=== PATIENT | female | born 1995 | race American Indian/Alaskan Native ===

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

== ENCOUNTER 2017-01-15 16:40 | Outpatient (CLI) | payer MEDICAID ==
[2017-01-15] MEDS ORDERED: LACTATED RINGERS 500 ML IV ONE (17:12)
[2017-01-15 17:50] LABS: Basophils % (Auto) 0.2 % (0.0-1.8); Eosinophils % (Auto) 0.7 % (0.0-4.3); Hematocrit 30.6 % (30.3-42.9); Hemoglobin 10.3 gm/dl (10.1-14.3); Mean Corpuscular HGB Conc 34 % (30-34); Mean Corpuscular Hemoglobin 27 pg (28-32); Mean Corpuscular Volume 81 fl (79-97); Platelet Count 144 K/mm3 (140-440); Red Blood Count 3.79 M/mm3 (3.65-5.03); Red Cell Distribution Width 13.9 % (13.2-15.2); White Blood Count 10.4 K/mm3 (4.5-11.0)
[2017-01-15 18:12] LABS: Bacteria,Urine 1+ /HPF (Negative); Bilirubin,Urine NEG (Negative); Blood,Urine NEG (Negative); Ketones,Urine NEG (Negative); Leukocyte Esterase,Urine LG (Negative); Mucus,Urine FEW /HPF; Nitrite,Urine NEG (Negative); Protein,Urine <15 mg/dL mg/dL (Negative)
[2017-01-15 18:47] LABS: Urine Drugs of Abuse Note Disclamer
--- NOTE | 2017-01-16 09:26 | Ultrasound Report ---
OB LIMITED INDICATION: Pain, bleeding. No care. Evaluate cervical length. COMPARISON: 12/30/2016 TECHNIQUE: Transabdominal grayscale ultrasound with Doppler interrogation. Gestation: Rojo Position: Breech Heart Rate: 142 BPM Cervical length: 3.1 cm (Normal > 3 cm)
[2017-01-16 11:28] VITALS: BP 120/61
== END 2017-01-15 21:30 | disposition home or self-care (01) ==
LOC: TRG 16:40
PROVIDERS: ATTEND Obstetrics & Gynecology
DX: O46.92 Antepartum hemorrhage, unspecified, second trimester (principal); O32.1XX0 Maternal care for breech presentation, not applicable or unspecified; Z3A.26 26 weeks gestation of pregnancy
CPT/HCPCS: 36415; 59025; 76815; 80307; 81001; 85025; J7120

== ENCOUNTER 2017-03-13 17:10 | Outpatient (CLI) | payer MEDICAID, OTHER ==
[2017-03-13] MEDS ORDERED: LACTATED RINGERS 1,000 ML IV ONE (18:40)
[2017-03-13] MEDS ORDERED: BRETHINE ONE (18:52)
[2017-03-13] MEDS ORDERED: BRETHINE SUB-Q ONE (19:00)
[2017-03-13] MEDS ORDERED: LACTATED RINGERS 1,000 ML IV SCH (19:00)
[2017-03-13 21:40] VITALS: BP 124/59
[2017-03-13] MEDS ORDERED: TYLENOL PO ONE (21:49)
--- NOTE | 2017-03-13 23:18 | Ultrasound Report ---
FINAL REPORT PROCEDURE: US OB LIMITED TECHNIQUE: Real-time limited sonographic examination was performed for evaluation of amniotic fluid volume for each fetus with image documentation (1 or more fetuses). CPT 98894 HISTORY: c/o vaginal leaking; SHANI COMPARISON: No prior studies are available for comparison. FINDINGS: IUP: Single living intrauterine . Position: Cephalic. Placental position: Anterior, without previa . Amniotic fluid volume: Amniotic fluid index is 18. Heart rate and rhythm: BPM, Regular . anatomic survey: Normal . heart rate is 143 beats per minute IMPRESSION: Amniotic fluid index is 18
== END 2017-03-13 22:10 | disposition home or self-care (01) ==
LOC: TRG 17:10
PROVIDERS: ATTEND Obstetrics & Gynecology
DX: O42.92 Full-term premature rupture of membranes, unspecified as to length of time between rupture and onset of labor (principal); O47.03 False labor before 37 completed weeks of gestation, third trimester; Z3A.34 34 weeks gestation of pregnancy
CPT/HCPCS: 59025; 76815; 96360; 96372; J3105; J7120

== ENCOUNTER 2017-04-08 01:04 | Inpatient (IN) | payer MEDICAID, OTHER ==
[2017-04-08] MEDS ORDERED: NITRATEST PAPER MC ONE (01:38)
[2017-04-08] MEDS ORDERED: LACTATED RINGERS 1,000 ML ONE ×2 (01:46→03:40)
[2017-04-08] MEDS ORDERED: LACTATED RINGERS 1,000 ML IV ONE (01:50)
[2017-04-08] MEDS ORDERED: STADOL ONE (03:38)
[2017-04-08] MEDS ORDERED: STADOL IV PRN (04:16)
[2017-04-08] MEDS ORDERED: BENADRYL ONE ×2 (04:41→10:18)
[2017-04-08] MEDS ORDERED: BENADRYL IV ONE (04:45)
[2017-04-08 04:54] LABS: Mean Corpuscular HGB Conc 32 % (30-34); Mean Corpuscular Hemoglobin 24 pg (28-32); Mean Corpuscular Volume 73 fl (79-97); Platelet Count 116 K/mm3 (140-440); Red Blood Count 4.26 M/mm3 (3.65-5.03); Red Cell Distribution Width 15.3 % (13.2-15.2)
[2017-04-08] MEDS ORDERED: PITOCin/NS 20 UNIT/1000ML DRIP 20 UNITS/1,000 ML BAG IV SCH ×2 (05:00→09:00)
[2017-04-08] MEDS ORDERED: PEPCID IV ONE (05:00)
[2017-04-08] MEDS ORDERED: LACTATED RINGERS 1,000 ML IV SCH (05:00)
[2017-04-08] MEDS ORDERED: REGLAN IV ONE (05:00)
[2017-04-08] MEDS ORDERED: BICITRA PO ONE (05:00)
[2017-04-08] MEDS ORDERED: ANCEF/STERILE WATER 2 GM/20 ML 2 GM/20 ML SYRINGE IV NR (05:00)
--- NOTE | 2017-04-08 06:13 | History and Physical Report ---
History of Present Illness Date of examination: 04/08/17 Date of admission: 04/08/17 05:39 Chief complaint: leakage of fluid History of present illness: 21y/o @ 38+3 weeks presents with irregular contractions and leakage of fluid. Patient initiated care @ 26 weeks ega. There has been evidence of THC use during the . She has a prior for PPROM and CPD. She denies vaginal bleeding. +GBS Past History Past Medical History: other (condyloma) Past Surgical History: section Social history: single - Obstetrical History Expected Date of Delivery: 04/19/17 Actual Gestation: 38 Week(s) 3 Day(s) : 3 Para: 1 Hx # Term Pregnancies: 0 Number of Pregnancies: 1 Spontaneous Abortions: 0 Induced : 1 Number of Living Children: 1 Medications and Allergies Allergies Allergy/AdvReac Type Severity Reaction Status Date / Time No Known Allergies Allergy Verified 03/13/17 17:38 Home Medications Medication Instructions Recorded Confirmed Last Taken Type Ferrous Sulfate [Feosol 325 MG tab] 325 mg PO BID #60 tablet 05/22/15 03/11/17 09:00 Rx 1 Active Meds: Active Medications Butorphanol Tartrate (Stadol) 2 mg IV Q2H PRN PRN Reason: Labor Pain Cefazolin Sodium (Ancef/Sterile Water 2 Gm/20 Ml) 2 gm in 20 mls @ 80 mls/hr IV PREOP NR PRN Reason: Protocol Stop: 04/08/17 23:45 Lactated Ringer's (Lactated Ringers) 1,000 mls @ 2,250 mls/hr IV PREOP LENI Stop: 04/09/17 05:27 Oxytocin/Sodium Chloride (Pitocin/Ns 20 Unit/1000ml Drip) 20 units in 1,000 mls @ 0 mls/hr IV TITR LENI PRN Reason: As Directed Review of Systems All systems: negative Genitourinary: leakage of fluid, contractions, no vaginal bleeding - Physical Exam Breasts: Positive: deferred Cardiovascular: Regular rate Lungs: Positive: Clear to auscultation Abdomen: Positive: normal appearance Results Result Diagrams: 04/08/17 01:50 Abnormal lab results 04/08/17 Range/Units 01:50 Hgb 10.0 L (10.1-14.3) gm/dl MCV 73 L (79-97) fl MCH 24 L (28-32) pg RDW 15.3 H (13.2-15.2) % Plt Count 116 L (140-440) K/mm3 All other labs normal. Assessment and Plan - Patient Problems (1) Spontaneous rupture of amniotic membranes Current Visit: Yes Status: Acute Plan to address problem: proceed with a repeat delivery (2) Previous delivery affecting Current Visit: Yes Status: Acute
--- NOTE | 2017-04-08 06:15 | Procedure Note ---
OB Delivery Note - Delivery Date of Delivery: 04/08/17 Surgeon: KARI MENDOZA Estimated blood loss: other (600ml) - Section Preop diagnosis: repeat Postop diagnosis: same section procedure: section, repeat low transverse Disposition: PACU Complications: none - Infant A at 1 minute: 8 at 5 minutes: 9 Infant Gender: Male (weight 6lbs 9oz)
[2017-04-08] MEDS ORDERED: WATER FOR IRRIG STERILE IR ONE (07:20)
[2017-04-08] MEDS ORDERED: NACL 0.9% IR ONE (07:20)
[2017-04-08] MEDS ORDERED: MORPHINE ONE (07:21)
[2017-04-08] MEDS ORDERED: NEO SYNEPHRINE/NS Syringe(OR USE) IV ONE (07:55)
[2017-04-08] MEDS ORDERED: ZOFRAN ONE (07:55)
[2017-04-08] MEDS ORDERED: TYLENOL PO PRN (08:31)
[2017-04-08] MEDS ORDERED: NARCAN 0.4 MG/1 ML IV PRN ×2 (08:31→08:44)
[2017-04-08] MEDS ORDERED: TUCKS PAD TP PRN (08:31)
[2017-04-08] MEDS ORDERED: LANSINOH TP PRN (08:31)
[2017-04-08] MEDS ORDERED: TORADOL IV PRN (08:31)
--- NOTE | 2017-04-08 08:31 | Operative Report ---
Operative Report Operative Report: Date of surgery: 04/08/2017 Preoperative diagnosis: at 38+3 weeks; Spontaneous rupture of membranes; Prior delivery Postoperative diagnosis: Same as above Procedure: Repeat low transverse delivery Surgeon: Laura Morgan M.D.[] Anesthesia: Regional Estimated blood loss: 600 mL IV fluids: 1500 mL Urine output: 100 mL Findings: Liveborn male with Apgars of 8 and 9 weight 6 lbs. 9 oz. Indications: 21year-old at 38 and 3 weeks who presents with spontaneous rupture membranes and a history of a prior delivery. Procedure: The patient was taken to the operating room and given regional anesthesia without complication. She was prepped and draped in a normal sterile fashion. A Pfannenstiel skin incision was made down to layer the fascia which was nicked in the midline extended laterally with the Bovie cautery. The superior aspect of the rectus fascia was grasped with [place] clamps x2 and the rectus muscles off sharply. This was done in inferior fashion as well. The rectus muscle midline and peritoneum entered bluntly. An Papi retractor was then inserted. A bladder blade was placed. The vesicouterine peritoneum was then entered sharply with Metzenbaum scissors. A bladder flap was created digitally. A low transverse uterine incision was then made and extended digitally. There was clear fluid upon entry into the uterine cavity. The head was delivered through the incision with fundal pressure. The cord was clamped and cut x2 and infant was passed off to pediatrics. The placenta was then manually extracted. The uterus was then exteriorized and cleared of clots and debris. The uterine incision was then closed in a running locked fashion with 0 Vicryl additional imbricating stitch was applied for 2 layer closure. The posterior cul-de-sac was then copiously irrigated. The uterus was replaced back into the abdomen and pelvis were the gutters were then irrigated. The Papi retractor was then removed. The peritoneum was then reapproximated with 3-0 Vicryl incorporating the rectus muscle. The fascia was then closed with 0 Vicryl in a running fashion. The skin was then reapproximated with 3-0 Monocryl on a Fransico needle subcuticular fashion. Steri-Strips to place across the incision and a Crede procedures performed at the end of the surgery. A pressure dressing was applied to the incision. The surgery productive of a liveborn male with Apgars of 8 and 9 weight 6 lbs. 9 oz. The patient was taken to the recovery room in stable condition. All sponge laps and needle counts correct x2.
--- NOTE | 2017-04-08 08:42 | Anesthesia Consultation ---
Anesthesia Consult and Med Hx Date of service: 04/08/17 - Airway Anesthetic Teeth Evaluation: Good ROM Head & Neck: Adequate Mental/Hyoid Distance: Adequate Mallampati Class: Class II Intubation Access Assessment: Probably Good - Pulmonary Exam CTA: Yes - Cardiac Exam Cardiac Exam: RRR - Pre-Operative Health Status ASA Pre-Surgery Classification: ASA2, Emergency Proposed Anesthetic Plan: Spinal - Pulmonary Hx Asthma: No COPD: No Hx Pneumonia: No - Cardiovascular System Hx Hypertension: No Hx Coronary Artery Disease: No Hx Heart Attack/AMI: No Hx Angina: No Hx Cardia Arrhythmia: No Hx Heart Murmur: No - Central Nervous System Hx Seizures: No Hx Psychiatric Problems: Yes (anxiety/panick attacks) - Endocrine Hx Renal Disease: No Hx End Stage Renal Disease: No Hx Hypothyroidism: No Hx Hyperthyroidism: No - Hematic Hx Anemia: No Hx Sickle Cell Disease: No - Other Systems Hx Alcohol Use: No
--- NOTE | 2017-04-08 08:43 | Anesthesia Day of Surgery ---
Anesthesia Day of Surgery - Day of Surgery Patient Examined: Yes Patient H&P Reviewed: Yes Patient is NPO: Yes (FSP)
[2017-04-08] MEDS ORDERED: MORPHINE IV PRN (08:44)
[2017-04-08] MEDS ORDERED: ZOFRAN IV PRN (08:44)
--- NOTE | 2017-04-08 08:44 | Post Anesthesia Evaluation ---
- Post Anesthesia Evaluation Patient Participated: Yes Airway Patent: Yes Stable Respiratory Function: Yes Temp > 96.8F: Yes Pain Manageable: Yes Adequeate Hydration: Yes Anesthesia Complications: No
[2017-04-08] MEDS ORDERED: D5LR 1,000 ML IV SCH (09:00)
[2017-04-08] MEDS ORDERED: SODIUM CHLORIDE FLUSH SYRINGE 10 ML IV NR (09:00)
[2017-04-08 20:35] LABS: Hematocrit 29.3 % (30.3-42.9)
[2017-04-08] MEDS ORDERED: MILK OF MAGNESIA PO PRN (22:00)
[2017-04-08] MEDS ORDERED: BENADRYL PO PRN (22:54)
[2017-04-09] MEDS: PERCOCET 5/325 PO PRN ×3 (08:56→22:51)
[2017-04-09] MEDS: MOTRIN PO PRN ×3 (08:56→22:52)
--- NOTE | 2017-04-09 12:45 | Progress Note ---
Assessment and Plan - Patient Problems (1) Spontaneous rupture of amniotic membranes Current Visit: Yes Status: Acute Plan to address problem: Routine postoperative care (2) Previous delivery affecting Current Visit: Yes Status: Acute Subjective - Subjective Date of service: 04/09/17 Interval history: The patient reports incisional pain. She is tolerating a regular diet. She has been able to void since removal of her Youssef. Patient reports: appetite normal, voiding normally : doing well Objective - Vital Signs Latest vital signs: Vital Signs Temp Pulse Resp BP Pulse Ox 04/09/17 07:54 99.6 F 79 20 117/62 95 04/09/17 04:05 99.4 F 74 18 124/75 04/09/17 00:00 98.0 F 75 18 114/57 04/08/17 21:55 99.0 F 04/08/17 20:10 100.4 F H 72 18 100/54 Intake and Output 04/08/17 04/09/17 04/09/17 22:59 06:59 14:59 Intake Total 320 360 120 Output Total 1400 500 Balance -1080 -140 120 Intake: Oral 320 360 120 Output: Urine 1400 500 Indwelling Catheter 600 500 Uretheral (Youssef) 800 Other: Total, Intake Amount 120 360 120 Total, Output Amount 600 500 # Voids Void 1 - Exam Abdomen: Present: normal appearance, soft Uterus: Present: normal, firm Incision: Present: normal, dry - Labs Labs: Abnormal lab results 04/08/17 Range/Units 19:55 Hgb 9.0 L (10.1-14.3) gm/dl Hct 29.3 L (30.3-42.9) %
[2017-04-10] MEDS: PERCOCET 5/325 PO PRN ×3 (05:33→21:07)
[2017-04-10] MEDS: MOTRIN PO PRN ×3 (05:33→21:07)
--- NOTE | 2017-04-10 08:21 | Progress Note ---
Assessment and Plan A/P POD#2 s/p repeat c/sec s/o cough and sob exam normal but will get cxr encourage ambulation and inspiratory spirometry pain tolerable with pain meds continous watch afebrile Subjective - Subjective Date of service: 04/10/17 Principal diagnosis: s/p repeat c/sec Patient reports: appetite normal, voiding normally, pain well controlled, flatus , ambulating normally [place]: doing well Objective - Vital Signs Latest vital signs: Vital Signs Temp Pulse Resp BP Pulse Ox 04/10/17 00:19 97.7 F 60 20 104/51 04/09/17 16:10 97.8 F 60 20 105/40 99 04/09/17 12:46 97.3 F L 62 16 118/54 97 Intake and Output 04/09/17 04/10/17 04/10/17 23:59 07:59 15:59 Intake Total 360 180 Balance 360 180 Intake: Oral 120 Intake, Free Water 240 180 Other: Total, Intake Amount 120 # Voids Void 1 1 - Exam Breasts: Present: normal Cardiovascular: Present: Regular rate, Normal S1 Lungs: Present: Clear to auscultation, Normal air movement Abdomen: Present: normal appearance, soft, normal bowel sounds. Absent: distention, tenderness, guarding Vulva: both: normal Uterus: Present: normal, firm, fundal height below umbilicus. Absent: bogginess , tenderness Extremities: Present: normal Deep Tendon Reflex Grade: Normal +2 Incision: Present: normal, dry, intact
--- NOTE | 2017-04-10 14:20 | XRay Report ---
ROUTINE CHEST, TWO VIEWS: HISTORY: Cough and shortness of breath. The trachea, heart, mediastinal contour, lung hickman and bony thorax are unremarkable. IMPRESSION: Unremarkable chest x-ray.
[2017-04-11] MEDS ORDERED: DEEP SEA NS PRN (05:40)
[2017-04-11] MEDS ORDERED: CLARITIN-D 24HR PO SCH (06:00)
[2017-04-11] MEDS: PERCOCET 5/325 PO PRN ×2 (06:29→15:40)
[2017-04-11] MEDS: MOTRIN PO PRN ×2 (06:30→15:40)
--- NOTE | 2017-04-11 08:23 | Discharge Summary ---
Providers - Providers Date of Admission: 04/08/17 05:39 Date of discharge: 04/11/17 Attending physician: KARI MENDOZA Primary care physician: KARI MENDOZA Hospitalization Reason for admission: active labor Delivery: Procedure: section, repeat low transverse Episiotomy: none Laceration: none Incision: normal, dry, intact Other procedures: none complications: none [place] baby: male Condition at discharge: Good Disposition: DC-01 TO HOME OR SELFCARE Plan - Discharge Medications Prescriptions: Docusate Sodium [Colace] 100 mg PO BID PRN #60 capsule PRN Reason: Constipation Ferrous Sulfate [Feosol] 325 mg PO BID #60 tablet Ibuprofen [Motrin] 800 mg PO Q8HR PRN #60 tablet PRN Reason: Pain Oxycodone HCl/Acetaminophen [Percocet 7.5/325 mg] 1 each PO Q6HR PRN #45 tablet PRN Reason: Pain - Provider Discharge Summary Activity: routine, no sex for 6 weeks, no strenuous exercise Diet: routine Instructions: routine Additional instructions: [] Smoking cessation referral if applicable(refer to patient education folder for contact #) [] Refer to [facility] Booklet Call your doctor immediately for: * Fever > 100.5 * Heavy vaginal bleeding ( >1 pad per hour) * Severe persistent headache * Shortness of breath * Reddened, hot, painful area to leg or breast * Drainage or odor from incision. * Keep incision clean and dry at all times and follow doctor's instructions regarding bathing/showering - Follow up plan Follow up: KARI MENDOZA MD [Primary Care Provider] - 7 Days
--- NOTE | 2017-04-11 08:23 | Progress Note ---
Assessment and Plan A/P POD#3 s/p repeat c/sec resolving cough and no sob cxr neg respiratory eval -patient voices improvement exam normal no wheezes appreciated encourage ambulation and inspiratory spirometry pain tolerable with pain meds d/c home in stable condition VSS f/u in 1 weeks Subjective - Subjective Date of service: 04/11/17 Principal diagnosis: s/p repeat c/sec Patient reports: appetite normal, voiding normally, pain well controlled, flatus , ambulating normally [place]: doing well Objective - Vital Signs Latest vital signs: Vital Signs Temp Pulse Resp BP Pulse Ox 04/11/17 00:00 98.6 F 62 16 114/64 04/10/17 21:15 98 04/10/17 16:00 98 F 98 H 18 99/43 Intake and Output 04/10/17 04/11/17 04/11/17 23:59 07:59 15:59 Intake Total 480 600 Balance 480 600 Intake: Oral 480 Intake, Free Water 600 Other: Total, Intake Amount 480 # Voids Void 2 # Bowel Movements 0 - Exam Breasts: Present: normal Cardiovascular: Present: Regular rate, Normal S1 Lungs: Present: Clear to auscultation, Normal air movement Abdomen: Present: normal appearance, soft, normal bowel sounds. Absent: distention, tenderness, guarding Vulva: both: normal Uterus: Present: normal, firm, fundal height below umbilicus (-2cm). Absent: bogginess, tenderness Extremities: Present: normal Deep Tendon Reflex Grade: Normal +2 Incision: Present: normal, dry, intact
[2017-04-11 13:02] VITALS: BP 117/60
== END 2017-04-11 16:10 | disposition home or self-care (01) | DRG 766 ==
LOC: TRG 01:04 → APU 05:39 → TRG 05:39 → OB 19:58
PROVIDERS: ADMIT Obstetrics & Gynecology; ATTEND Obstetrics & Gynecology
PROC: 10D00Z1 Extraction of Products of Conception, Low, Open Approach (ICD-10-PCS; principal; 2017-04-08)
DX: O34.211 Maternal care for low transverse scar from previous cesarean delivery (principal); O99.344 Other mental disorders complicating childbirth; F41.0 Panic disorder [episodic paroxysmal anxiety]; Z3A.38 38 weeks gestation of pregnancy; Z37.0 Single live birth
CPT/HCPCS: 36415; 71046; 85014; 85018; 85027; 86592; 86850; 86900; 86901; 99211; G0463; J0595; J0690; J1200; J1885; J2270; J2370; J2405; J2590; J2765; J7120

== ENCOUNTER 2017-08-07 20:23 | Emergency (ER) | payer MEDICAID | END 2017-08-07 20:45 | disposition left against medical advice (07) | LOC: ED 20:23 | DX: J02.9 Acute pharyngitis, unspecified (principal); M79.1 Myalgia; R11.10 Vomiting, unspecified; Z53.21 Procedure and treatment not carried out due to patient leaving prior to being seen by health care provider ==

== ENCOUNTER 2019-11-21 14:37 | Outpatient (CLI) | payer MEDICAID ==
[2019-11-21] MEDS ORDERED: LACTATED RINGERS 1,000 ML ONE (16:40)
[2019-11-21] MEDS ORDERED: TERBUTALINE 1 MG/1 ML INJ ONE (16:41)
[2019-11-21] MEDS ORDERED: LACTATED RINGERS 1,000 ML IV ONE (16:43)
[2019-11-21] MEDS: TERBUTALINE 1 MG/1 ML INJ SUB-Q SCH ×2 (16:46→17:35)
[2019-11-21] MEDS ORDERED: BETAMET ACET/BETAMET NA PH 6 MG/ML INJ 5 ML MDV IM SCH (22:00)
[2019-11-21] MEDS ORDERED: diphenhydrAMINE 25 MG CAP PO PRN (22:11)
[2019-11-21] MEDS ORDERED: DOCUSATE SODIUM 100 MG CAP PO PRN (22:11)
[2019-11-21] MEDS ORDERED: ACETAMINOPHEN 325 MG TAB PO PRN (22:11)
[2019-11-21] MEDS ORDERED: ONDANSETRON 4 MG/2 ML INJ IV PRN (22:11)
[2019-11-21] MEDS ORDERED: SIMETHICONE 80 MG CHEW TAB PO PRN (22:11)
[2019-11-21] MEDS: LACTATED RINGERS 1,000 ML IV SCH (23:11)
--- NOTE | 2019-11-21 23:45 | Ultrasound Report ---
ULTRASOUND OBSTETRIC LIMITED ULTRASOUND BIOPHYSICAL PROFILE INDICATION / CLINICAL INFORMATION: contractions. Clinical Gestational Age (GA): 34 weeks 1 day COMPARISON: None available. FINDINGS: BREATHING MOVEMENT = 2 GROSS BODY MOVEMENT = 2 TONE = 2 QUALITATIVE AMNIOTIC FLUID VOLUME = 2 TOTAL BIOPHYSICAL SCORE = 8/8 HEART RATE (beats per minute): 131 AMNIOTIC FLUID INDEX (cm) = 13.0 (normal = 7-24 cm) PRESENTATION: Cephalic. ADDITIONAL FINDINGS: Placenta is located posteriorly. IMPRESSION: 1. Biophysical Score = 8/8 2. Viable IUP in a cephalic presentation with normal SHANI and posterior placenta. Signer Name: Fauzia Randhawa MD Signed: 11/21/2019 11:41 PM Workstation Name: [id number]
[2019-11-22 01:30] LABS: Basophils % (Auto) 0.2 % (0.0-1.8); Eosinophils # (Auto) 0.1 K/mm3 (0.0-0.4); Eosinophils % (Auto) 0.5 % (0.0-4.3); Hemoglobin 8.9 gm/dl (10.1-14.3); Lymphocytes # (Auto) 1.5 K/mm3 (1.2-5.4); Mean Corpuscular HGB Conc 32 % (30-34); Mean Corpuscular Volume 71 fl (79-97); Monocytes # (Auto) 0.3 K/mm3 (0.0-0.8); Monocytes % (Auto) 3.1 % (0.0-7.3); Platelet Count 115 K/mm3 (140-440); Red Blood Count 3.96 M/mm3 (3.65-5.03); Red Cell Distribution Width 17.3 % (13.2-15.2)
[2019-11-22] MEDS: LACTATED RINGERS 1,000 ML IV SCH (06:54)
[2019-11-22 08:51] VITALS: BP 110/53
--- NOTE | 2019-11-22 09:10 | History and Physical Report ---
History of Present Illness Date of examination: 11/22/19 Chief complaint: contractions History of present illness: Pt is a 24 year old ERA 12/30/19 at 34w4d presents with contractions on 11/21/19 at 1600 pm. While she was in triage she received IV fluids and terbutaline but continued to contract. There was an order for admission around 2300 pm 11/21/19 but there were no beds on the floor so the patient remained in triage overnight. This morning she continues to experience irregular contractions, but after ~15 hours of observation, her cervix remains intact. She has had care at [facility] since 17 wks complicated by trichomonas treated with negative test of cure, bilateral pyelectasis s/p MFM referral with resolution, thrombocytopenia, and prior x 2. She is GBS positive. 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: trichomonas (treated with negative test of cure ) Family/Genetic History: hypertension Social history: no significant social history - Obstetrical History Expected Date of Delivery: 12/30/19 Actual Gestation: 34 Week(s) 4 Day(s) : 4 Para: 2 Hx # Term Pregnancies: 1 Number of Pregnancies: 1 Spontaneous Abortions: 0 Induced : 1 Number of Living Children: 2 Medications and Allergies Allergies Allergy/AdvReac Type Severity Reaction Status Date / Time No Known Allergies Allergy Verified 03/13/17 17:38 Home Medications Medication Instructions Recorded Confirmed Last Taken Type Acetaminophen [Acetaminophen TAB] 650 mg PO Q4H PRN tablet 08/12/17 Unknown Rx Amoxicillin [Amoxicillin TAB] 875 mg PO BID #10 tablet 08/12/17 Unknown Rx Active Meds: Active Medications Acetaminophen (Tylenol) 650 mg PO Q4H PRN PRN Reason: Pain MILD(1-3)/Fever >100.5/HERNÁNDEZ Betamethasone Acet/Betameth SodPhos (Celestone Soluspan) 12 mg IM Q24HR LENI Stop: 11/22/19 10:01 Last Admin: 11/21/19 23:12 Dose: 12 mg Documented by: Diphenhydramine HCl (Benadryl) 25 mg PO Q6H PRN PRN Reason: Itching Docusate Sodium (Colace) 100 mg PO Q12H PRN PRN Reason: Constipation Lactated Ringer's (Lactated Ringers) 1,000 mls @ 150 mls/hr IV DIRECT LENI Last Admin: 11/22/19 06:54 Dose: 150 mls/hr Documented by: Multivitamins/Iron/Calcium ( Vitamin) 1 each PO QDAY [facility] Ondansetron HCl (Zofran) 4 mg IV Q6H PRN PRN Reason: Nausea And Vomiting Simethicone (Mylicon) 80 mg PO Q6H PRN PRN Reason: Gas pain Terbutaline Sulfate (Brethine) 0.25 mg SUB-Q Q20MIN LENI Stop: 11/23/19 17:01 Last Admin: 11/21/19 17:35 Dose: 0.25 mg Documented by: Review of Systems All systems: negative - Vital Signs Vital signs: Vital Signs Pulse BP 88 111/53 11/21/19 16:04 11/21/19 16:04 Temp Pulse Resp BP Pulse Ox 98.1 F 68 18 110/53 99 11/22/19 06:53 11/22/19 09:08 11/22/19 06:53 11/22/19 08:50 11/22/19 09:08 - Physical Exam Breasts: Positive: deferred Abdomen: Positive: soft (gravid ) Genitourinary (Female): Positive: normal external genitalia Uterus: Positive: enlarged (gravid ) Extremities: Positive: normal - Obstetrical FHR: auscultation normal Uterine Contraction Monitor Mode: External Cervical Dilatation: 1 Cervical Effacement Percentage: 40 station: -2 Uterine Contraction Pattern: Irregular Uterine Tone Measurement Phase: Resting Uterine Contraction Intensity: Mild Results Result Diagrams: 11/22/19 00:50 Abnormal lab results 11/22/19 Range/Units 00:50 Hgb 8.9 L (10.1-14.3) gm/dl Hct 28.0 L (30.3-42.9) % MCV 71 L (79-97) fl MCH 22 L (28-32) pg RDW 17.3 H (13.2-15.2) % Plt Count 115 L (140-440) K/mm3 Seg Neutrophils % 82.2 H (40.0-70.0) % Seg Neutrophils # 8.9 H (1.8-7.7) K/mm3 All other labs normal. Assessment and Plan A: IUP at 34w4d s/p one dose of betamethasone contractions without cervical exchange mechanic 15 hours of observation Previous x 2 GBS positive status Trichomonas P: Plan to discharge patient home with follow up in 2-3 days in office.
--- NOTE | 2019-11-22 09:39 | Discharge Summary ---
Providers - Providers Date of Admission: 11/21/19 Date of discharge: 11/22/19 Attending physician: KARI MENDOZA Primary care physician: KARI MENDOZA Hospitalization Reason for admission: other ( contractions ) Hospital course: Pt was admitted for prolonged observation due to contractions. She received terbutaline and IV fluids and over 15 hours of observation she made no cervical change. She received one dose of betamethasone. She will be discharged with labor and decreased movement precautions. She will return tonight around 11 am for her second dose of betamethasone. She will follow up in the office in 2-3 days. Condition at discharge: Stable Disposition: DC-01 TO HOME OR SELFCARE - Discharge Diagnoses (1) uterine contractions in third trimester, antepartum Status: Acute (2) Previous section complicating Status: Acute Plan - Provider Discharge Summary Activity: routine, no heavy lifting 4 weeks, no strenuous exercise Diet: routine Instructions: routine Additional instructions: [] Smoking cessation referral if applicable(refer to patient education folder for contact #) [] Refer to [facility]'s [facility] Booklet Call your doctor immediately for: * Fever > 100.5 * Heavy vaginal bleeding ( >1 pad per hour) * Severe persistent headache * Shortness of breath * Reddened, hot, painful area to leg or breast * Drainage or odor from incision. * Keep incision clean and dry at all times and follow doctor's instructions regarding bathing/showering - Follow up plan Follow up: BOB ALAMO NP [Referring] - 3 Days (Please call to schedule a follow up appt at [place] either 11/23 or 11/24 ) Forms: [facility] Discharge Summary
[2019-11-22] MEDS ORDERED: PRENATAL VIT27-FE FUMARATE-FOLIC ACID VIT TAB PO SCH (10:00)
== END 2019-11-22 09:25 | disposition home or self-care (01) ==
LOC: TRG 14:37 → APU 14:38 → TRG 11-22 09:25
PROVIDERS: ATTEND Obstetrics & Gynecology
DX: O62.9 Abnormality of forces of labor, unspecified (principal); O98.813 Other maternal infectious and parasitic diseases complicating pregnancy, third trimester; A59.9 Trichomoniasis, unspecified; O13.3 Gestational [pregnancy-induced] hypertension without significant proteinuria, third trimester; O99.013 Anemia complicating pregnancy, third trimester; D64.9 Anemia, unspecified; Z3A.34 34 weeks gestation of pregnancy; Z87.891 Personal history of nicotine dependence
CPT/HCPCS: 36415; 76815; 76819; 85025; 86850; 86900; 86901; 96360; 96361; 96372; J0702; J3105; J7120

== ENCOUNTER 2019-11-25 10:39 | Outpatient (CLI) | payer MEDICAID ==
[2019-11-25 11:46] LABS: Bilirubin,Urine NEG (Negative); Blood,Urine NEG (Negative); Color,Urine Yellow (Yellow); Mucus,Urine FEW /HPF; Urobilinogen,Urine < 2.0 mg/dL (<2.0)
[2019-11-25] MEDS ORDERED: cefTRIAXone/NS 1 GM/50 ML 1 GM/50 ML BAG IV ONE (14:00)
[2019-11-25] MEDS: LACTATED RINGERS 1,000 ML IV SCH ×2 (14:06→14:08)
--- NOTE | 2019-11-25 14:43 | Ultrasound Report ---
ULTRASOUND OBSTETRIC LIMITED ULTRASOUND BIOPHYSICAL PROFILE INDICATION / CLINICAL INFORMATION: Evaluate amniotic fluid index and well being. COMPARISON: None available. FINDINGS: BREATHING MOVEMENT = 2 GROSS BODY MOVEMENT = 2 TONE = 2 QUALITATIVE AMNIOTIC FLUID VOLUME = 2 TOTAL BIOPHYSICAL SCORE = 8/8 AMNIOTIC FLUID INDEX (cm) = 18.6 PRESENTATION: Cephalic. HEART RATE (beats per minute): 151 ADDITIONAL FINDINGS: None. IMPRESSION: 1. Biophysical Score = 8/8 2. Normal amniotic fluid index of 18.6 cm. Signer Name: Akil Dang MD Signed: 11/25/2019 2:39 PM Workstation Name: [id number]
[2019-11-25] MEDS ORDERED: TERBUTALINE 1 MG/1 ML INJ SUB-Q SCH (16:00)
[2019-11-25 16:23] VITALS: BP 110/84
[2019-11-25] MEDS ORDERED: LACTATED RINGERS 500 ML IV ONE (16:58)
== END 2019-11-25 16:50 | disposition home or self-care (01) ==
LOC: APU 10:39 → TRG 10:39 → APU 10:41 → TRG 16:50
PROVIDERS: ATTEND Obstetrics & Gynecology
DX: O62.9 Abnormality of forces of labor, unspecified (principal); O26.893 Other specified pregnancy related conditions, third trimester; R06.02 Shortness of breath; Z3A.34 34 weeks gestation of pregnancy
CPT/HCPCS: 59025; 76815; 76819; 81001; 96361; 96365; J0696; J7120; 96360

== ENCOUNTER 2019-12-19 05:39 | Inpatient (IN) | payer MEDICAID ==
[2019-12-19] MEDS ORDERED: LACTATED RINGERS 2,000 ML ONE (05:58)
[2019-12-19] MEDS ORDERED: BICITRA ORAL LIQD 30ML PO ONE ×2 (06:08→06:11)
[2019-12-19] MEDS ORDERED: METOCLOPRAMIDE 10 MG/2 ML INJ IV ONE ×2 (06:08→06:11)
[2019-12-19] MEDS ORDERED: FAMOTIDINE 20 MG/2 ML INJ IV ONE ×3 (06:08→06:14)
[2019-12-19] MEDS ORDERED: OXYTOCIN 20 UNIT/1000ML DRIP 20,000 MILLIUNITS/1,000 ML BAG IV ONE (06:13)
[2019-12-19] MEDS ORDERED: BICITRA ORAL LIQD 30ML ONE (06:13)
[2019-12-19] MEDS ORDERED: METOCLOPRAMIDE 10 MG/2 ML INJ ONE (06:14)
--- NOTE | 2019-12-19 06:23 | History and Physical Report ---
History of Present Illness Date of examination: 12/19/19 Chief complaint: contractions History of present illness: Pt is a 24 year old [id number] ERA 12/30/19 at 38w3d who presents with regular painful contractions and advanced cervical dilation of 7 cm. She denies leakage of fluid or vaginal bleeding. She has had care at [facility] since 17 wks complicated by trichomonas treated with negative test of cure, bilateral pyelectasis s/p MFM referral with resolution, thr ombocyoptenia, and prior x 2. She is GBS positive. Past History Past Medical History: hematologic disorders (Anemia, ) Past Surgical History: tonsillectomy, section [employer] History: trichomonas (treated with negative test of cure ) Family/Genetic History: hypertension Social history: no significant social history - Obstetrical History Expected Date of Delivery: 12/30/19 Actual Gestation: 38 Week(s) 3 Day(s) : 4 Para: 2 Hx # Term Pregnancies: 1 Number of Pregnancies: 1 Spontaneous Abortions: 0 Induced : 1 Number of Living Children: 2 Medications and Allergies Allergies Allergy/AdvReac Type Severity Reaction Status Date / Time No Known Allergies Allergy Verified 03/13/17 17:38 Home Medications Medication Instructions Recorded Confirmed Last Taken Type Acetaminophen [Acetaminophen TAB] 650 mg PO Q4H PRN tablet 08/12/17 Unknown Rx Amoxicillin [Amoxicillin TAB] 875 mg PO BID #10 tablet 08/12/17 Unknown Rx Active Meds: Active Medications Citric Acid/Sodium Citrate (Bicitra) 30 ml PO ONCE ONE Stop: 12/19/19 06:09 Famotidine (Pepcid) 20 mg IV ONCE ONE Stop: 12/19/19 06:09 Lactated Ringer's (Lactated Ringers) 1,000 mls @ 2,250 mls/hr IV PREOP LENI Stop: 12/20/19 07:27 Oxytocin/Sodium Chloride (Pitocin/Ns 20 Unit/1000ml Drip) 20 units in 1,000 mls @ 0 mls/hr IV DIRECT LENI Cefazolin Sodium (Ancef/Sterile Water 2 Gm/20 Ml) 2 gm in 20 mls @ 80 mls/hr IV PREOP NR; Protocol Stop: 12/19/19 07:14 Lactated Ringer's (Lactated Ringers) 1,000 mls @ 2,250 mls/hr IV PREOP LENI Stop: 12/20/19 07:27 Oxytocin/Sodium Chloride (Pitocin/Ns 20 Unit/1000ml Drip) 20 units in 1,000 mls @ 0 mls/hr IV DIRECT LENI Metoclopramide HCl (Reglan) 10 mg IV ONCE ONE Stop: 12/19/19 06:09 Review of Systems All systems: negative - Vital Signs Vital signs: Vital Signs Pulse Pulse Ox 89 100 12/19/19 06:15 12/19/19 06:15 Temp Pulse Resp BP Pulse Ox 126 H 96 12/19/19 06:20 12/19/19 06:20 - Physical Exam Abdomen: Positive: soft (gravid ) Uterus: Positive: enlarged (gravid ) Extremities: Positive: normal - Obstetrical FHR: auscultation normal Uterine Contraction Monitor Mode: External Cervical Dilatation: 7 (per RN ) Results All other labs normal. Assessment and Plan A: IUP at 38w3d Active labor Previous x 2 Trichomonas with negative test of cure GBS positive P: Proceed with urgent repeat section and other indicated procedures
[2019-12-19 06:38] LABS: Hematocrit 33.2 % (30.3-42.9); Hemoglobin 10.5 gm/dl (10.1-14.3); Mean Corpuscular HGB Conc 32 % (30-34); Platelet Count 136 K/mm3 (140-440); Red Blood Count 4.77 M/mm3 (3.65-5.03); Red Cell Distribution Width 18.5 % (13.2-15.2)
[2019-12-19 06:46] LABS: Mean Corpuscular Volume 70 fl (79-97)
--- NOTE | 2019-12-19 06:49 | Anesthesia Day of Surgery ---
Anesthesia Day of Surgery - Day of Surgery Patient Examined: Yes Patient H&P Reviewed: Yes Patient is NPO: Yes
--- NOTE | 2019-12-19 06:49 | Anesthesia Consultation ---
Anesthesia Consult and Med Hx Date of service: 12/19/19 - Airway Anesthetic Teeth Evaluation: Good ROM Head & Neck: Adequate Mental/Hyoid Distance: Adequate Mallampati Class: Class II Intubation Access Assessment: Probably Good - Pulmonary Exam CTA: Yes - Cardiac Exam Cardiac Exam: RRR - Pre-Operative Health Status ASA Pre-Surgery Classification: ASA2, Emergency Proposed Anesthetic Plan: Spinal - Pulmonary Hx Smoking: No Hx Asthma: No COPD: No Hx Pneumonia: No Hx Sleep Apnea: No - Cardiovascular System Hx Hypertension: No Hx Coronary Artery Disease: No Hx Heart Attack/AMI: No Hx Angina: No Hx Percutaneous Transluminal Coronary Angioplasty (PTCA): No Hx Cardia Arrhythmia: No Hx Internal Defibrillator: No Hx Valvular Heart Disease: No Hx Heart Murmur: No Hx Peripheral Vascular Disease: No - Central Nervous System Hx Seizures: No CVA: No Hx Psychiatric Problems: No - Gastrointestinal Hx Ulcer: No - Endocrine Hx Renal Disease: No Hx End Stage Renal Disease: No Hx Cirrhosis: No Hx Liver Disease: No Hx Hypothyroidism: No Hx Hyperthyroidism: No - Hematic Hx Anemia: Yes Hx Sickle Cell Disease: No - Other Systems Hx Alcohol Use: No
[2019-12-19] MEDS ORDERED: ceFAZolin/Water 2 GM/20 ML 2 GM/20 ML SYRINGE IV NR (07:00)
[2019-12-19] MEDS ORDERED: OXYTOCIN 20 UNIT/1000ML DRIP 20 UNITS/1,000 ML BAG IV SCH ×3 (07:00→08:00)
[2019-12-19] MEDS ORDERED: LACTATED RINGERS 1,000 ML IV SCH ×2 (07:00)
[2019-12-19] MEDS ORDERED: SODIUM CHLORIDE 0.9% IRR 1,500 ML BOTTLE IR ONE (07:10)
[2019-12-19] MEDS ORDERED: WATER FOR IRRIG STERILE 1,500 ML BOTTLE IR ONE (07:15)
[2019-12-19] MEDS ORDERED: NALOXONE 0.4 MG/1 ML INJ IV PRN (08:00)
[2019-12-19] MEDS ORDERED: ACETAMINOPHEN 325 MG TAB PO PRN (08:00)
[2019-12-19] MEDS ORDERED: WITCH HAZEL/ GLYCERIN PAD TP PRN (08:00)
[2019-12-19] MEDS ORDERED: D5W/LACTATED RINGERS 1,000 ML IV SCH (08:00)
[2019-12-19] MEDS ORDERED: LANOLIN/ZINC/DIMETHICONE (LANSINOH) 7 GM TP PRN (08:00)
[2019-12-19] MEDS ORDERED: ONDANSETRON 4 MG/2 ML INJ IV PRN (08:00)
[2019-12-19] MEDS ORDERED: KETOROLAC 30 MG/1 ML INJ IV PRN (08:00)
--- NOTE | 2019-12-19 08:08 | Procedure Note ---
OB Delivery Note - Delivery Date of Delivery: 12/19/19 Surgeon: FRACISCO NAVARRO Estimated blood loss: other (700 mL) - Section Preop diagnosis: repeat , other (active labor ) Postop diagnosis: same section procedure: section, repeat low transverse Disposition: PACU Complications: none Narrative: Please see operative report - Infant A at 1 minute: 8 at 5 minutes: 9 Gender: Male (3373g (7lb 7oz) @ 0732 am)
[2019-12-19] MEDS ORDERED: DEXMEDETOMIDINE 200 MCG/2 ML VIAL IV ONE (08:11)
[2019-12-19] MEDS ORDERED: BUPIVACAINE/PF (0.5%) 5 MG/1 ML 30 ML VIAL INFILTRATI ONE (08:11)
[2019-12-19] MEDS ORDERED: BUPIVACAINE /DEX-WATER 0.75% (2 ML) AMPULE INFILTRATI ONE (08:11)
[2019-12-19] MEDS ORDERED: ceFAZolin 1 GM VIAL ONE (08:11)
[2019-12-19] MEDS ORDERED: ONDANSETRON 4 MG/2 ML INJ ONE (08:11)
[2019-12-19] MEDS ORDERED: PHENYLEPHRINE/NS 1,000 MCG/10 ML SYRINGE (OR USE) IV ONE (08:11)
[2019-12-19] MEDS ORDERED: OXYTOCIN 10 UNIT/1 ML INJ ONE (08:11)
[2019-12-19] MEDS ORDERED: KETOROLAC 30 MG/1 ML INJ ONE (08:11)
--- NOTE | 2019-12-19 08:13 | Operative Report ---
Operative Report Operative Report: Date of procedure: December 19, 2019 Preoperative diagnosis: 1) IUP at 38w3d 2) Active labor 3)Previous x 2 Postoperative diagnosis: Same Procedure: Repeat low transverse section Surgeon: Anuja Menezes M.D. Anesthesia: Regional Findings: 1) Viable male , Apgars 8 and 9, weight 3373 g, (7 lb 7 oz) in cephalic presentation. 2) Normal-appearing uterus ovaries and tubes Estimated blood loss: 700 mL IV fluids:1800 mL Urine output: 100 mL, clear at the end of the procedure Drains: Youssef to gravity Specimens: None Complications:None. Counts correct x 3 Disposition: Stable to PACU Indication for procedure: Pt is a 24 year old at 38w3d with a h/o two prior cesareans who presents in active labor. The decision was made to proceed with section. Operation in detail: After the risks, benefits, alternatives and complications were explained to the patient she gave informed consent for the procedure. She was subsequently taken to the operating room where regional anesthesia was noted to be adequate. She was subsequently placed in the dorsal supine position with leftward tilt and prepped and draped in a normal sterile fashion. heart tones were noted prior to incision. A timeout was performed. A Pfannenstiel skin incision was made with the knife and carried down to the layer of the fascia with the Bovie. The fascia was incised in the midline and the fascial incision was extended bilaterally with the Bovie. The fascial incision was then stretched. The rectus muscles were then in the midline for adequate visualization. The peritoneum was then entered bluntly. The peritoneal incision was extended with good visualization of the bladder. The peritoneal incision was then stretched. An Papi retractor was placed. The bladder blade was then placed. A transverse incision was made in the lower uterine segment with a knife and extended bilaterally with the bandage scissors. Amniotomy was performed with egress of clear fluid. head delivered with ease, followed by shoulders and body. bulb suctioned at delivery. Cord clamped and cut. handed to NICU staff in attendance. Cord blood was collected. The placenta was then delivered manually. The uterus was then cleared of all clots and debris. The hysterotomy was then reapproximated with 0 Vicryl in a running locked fashion. A second layer of the same suture was used in imbricating fashion. The hysterotomy was inspected and hemostasis was noted. The gutters were irrigated and cleared of all clots and debris. The hysterotomy was again inspected and noted to be hemostatic. Surgicel was placed over the hysterotomy. The Papi retractor was removed. The peritoneum was reapproximated with 2-0 Vicryl in a running fashion incorporating the rectus muscles. Surgicel was placed over the rectus muscles. The fascia was reapproximated with 0 Vicryl in a running fashion. The skin was reapproximated with 4-0 Vicryl in a subcuticular fashion. The incision was then covered with steri strips and a pressure dressing. The procedure was then ended. The patient tolerated the procedure well and was taken to the PACU in stable condition. All instrument, lap, and needle counts were correct 3.
--- NOTE | 2019-12-19 08:51 | Progress Note ---
Regional Anesthesia Block - Regional Anesthesia Block Start Time: 08:45 Stop Time: 08:50 Performed By:: FREDRICK NIEVES Procedure: U/S guided bilateral tap block performed for post-operative pain requested by Dr. Menezes. H&P & labs reviewed. Procedure explained, questions answered, consent obtained. Patient in the supine position with ekg, blood pressure cuff and pulse ox on and working in PACU. Timeout performed immediately before start of procedure. Probe placed in the mid-axillary line and the external oblique, internal oblique, and transverse abdominus muscles identified. Skin was cleansed with 0.5% Chlorahexadine and allowed to dry. A 4" 20 G Balderas echogenic needle was advanced in plane until the tip was in the fascial plane between the internal oblique and the transverse abdominus. After negative aspiration 35 ml/side of [30 ml 0.5% Bupivacaine], [50 mcg dexmedetomidine], [8 mg dexamethasone], and [40 ml sterile saline] was injected in 5 ml increments with negative aspiration in between. Patient tolerated procedure well. Day SRNA
--- NOTE | 2019-12-19 08:51 | Post Anesthesia Evaluation ---
- Post Anesthesia Evaluation Patient Participated: Yes Airway Patent: Yes Stable Respiratory Function: Yes Nausea/Vomiting: No Temp > 96.8F: Yes Pain Manageable: Yes Adequeate Hydration: Yes Anesthesia Complications: No Block Receding Appropriately: Yes
[2019-12-19] MEDS: MORPHINE 4 MG/1 ML INJ IV PRN ×2 (13:49→22:21)
[2019-12-19 19:54] LABS: Hematocrit 30.2 % (30.3-42.9); Hemoglobin 9.3 gm/dl (10.1-14.3)
[2019-12-19] MEDS: oxyCODONE /ACETAMINOPHEN 5-325MG TAB PO PRN (20:13)
[2019-12-20] MEDS: oxyCODONE /ACETAMINOPHEN 5-325MG TAB PO PRN ×6 (00:59→23:18)
[2019-12-20] MEDS: IBUPROFEN 800 MG TAB PO PRN ×3 (04:10→17:00)
--- NOTE | 2019-12-20 10:53 | Progress Note ---
Assessment and Plan - Patient Problems (1) delivery delivered Current Visit: Yes Status: Acute Plan to address problem: Modify pain management regimen Subjective - Subjective Date of service: 12/20/19 Interval history: Patient is status post a repeat delivery. She reports that she is having incisional pain and burning. Currently her pain medicine regimen has not been completely effective. She is tolerating a clear diet without complication. The patient reports being able to void. Patient reports: appetite normal, voiding normally, pain poorly controlled [place]: doing well Objective - Vital Signs Latest vital signs: Vital Signs Temp Pulse Resp BP BP Pulse Ox 12/20/19 10:10 20 12/20/19 09:11 20 12/20/19 09:07 98.2 F 20 120/64 12/20/19 06:16 18 12/20/19 05:16 18 12/20/19 05:10 18 12/20/19 04:10 18 12/20/19 01:59 18 12/20/19 00:59 18 12/20/19 00:00 98.6 F 74 16 102/66 12/19/19 22:51 18 12/19/19 22:21 20 12/19/19 21:23 98.0 F 68 18 111/56 98 12/19/19 21:13 18 12/19/19 20:13 18 12/19/19 18:12 20 12/19/19 16:00 97.4 F L 81 20 108/61 98 12/19/19 13:49 18 Intake and Output 12/19/19 12/20/19 12/20/19 22:59 06:59 14:59 Intake Total 660 320 Output Total 1850 800 Balance -1190 -480 Intake: Oral 360 200 Intake, Free Water 300 120 Output: Urine 1850 800 Indwelling Catheter 1250 Void 600 800 Other: Total, Intake Amount 360 200 Total, Output Amount 600 800 Voiding Method Toilet # Voids Void 1 1 - Exam Abdomen: Present: normal appearance Incision: Present: dressed - Labs Labs: Abnormal lab results 12/19/19 Range/Units 19:36 Hgb 9.3 L (10.1-14.3) gm/dl Hct 30.2 L (30.3-42.9) %
[2019-12-21] MEDS: oxyCODONE /ACETAMINOPHEN 5-325MG TAB PO PRN ×3 (05:09→13:57)
[2019-12-21] MEDS: IBUPROFEN 800 MG TAB PO PRN (07:33)
--- NOTE | 2019-12-21 11:51 | Progress Note ---
Assessment and Plan - Patient Problems (1) delivery delivered Current Visit: Yes Status: Acute Plan to address problem: Patient doing well Discharge home Subjective - Subjective Date of service: 12/21/19 Interval history: The patient is without any significant complaints. She is tolerating regular diet without complication. Her pain is controlled. Patient reports: appetite normal, voiding normally, pain well controlled : doing well Objective - Vital Signs Latest vital signs: Vital Signs Temp Pulse Resp BP BP Pulse Ox 12/21/19 09:57 20 12/21/19 08:06 97.9 F 63 20 114/47 98 12/21/19 07:33 20 12/21/19 01:02 98.0 F 66 18 98/47 98 12/20/19 18:24 20 12/20/19 17:01 97.8 F 58 L 20 109/30 93 12/20/19 17:00 20 12/20/19 14:18 20 Intake and Output 12/20/19 12/21/19 12/21/19 22:59 06:59 14:59 Intake Total 360 120 Balance 360 120 Intake: Oral 120 Intake, Free Water 360 Other: Total, Intake Amount 120 Voiding Method Toilet # Voids Void 1 1 - Exam Abdomen: Present: normal appearance, soft Incision: Present: normal
--- NOTE | 2019-12-21 11:52 | Discharge Summary ---
Providers - Providers Date of Admission: 12/19/19 07:33 Date of discharge: 12/21/19 Attending physician: FRACISCO NAVARRO Primary care physician: FRACISCO NAVARRO Hospitalization Reason for admission: active labor, section Delivery: Procedure: section, repeat low transverse Discharge diagnosis: IUP at term delivered Hospital course: The patient was admitted in active labor with advanced cervical dilatation. She has a history of prior delivery. The patient underwent a repeat delivery. Please see operative note for details of surgery. Her postoperative course was uneventful. Condition at discharge: Good Disposition: DC-01 TO HOME OR SELFCARE - Discharge Diagnoses (1) delivery delivered Status: Acute Plan - Discharge Medications Prescriptions: Ibuprofen [Motrin] 800 mg PO Q8HR PRN #60 tablet PRN Reason: Pain , Severe (7-10) oxyCODONE /ACETAMINOPHEN [Percocet 5/325] 1 tab PO Q6HR PRN #30 tablet PRN Reason: Pain - Provider Discharge Summary Activity: no sex for 6 weeks, no heavy lifting 4 weeks, no strenuous exercise Diet: routine Instructions: routine Additional instructions: [] Smoking cessation referral if applicable(refer to patient education folder for contact #) [] Refer to [facility]'s [facility] Booklet Call your doctor immediately for: * Fever > 100.5 * Heavy vaginal bleeding ( >1 pad per hour) * Severe persistent headache * Shortness of breath * Reddened, hot, painful area to leg or breast * Drainage or odor from incision. * Keep incision clean and dry at all times and follow doctor's instructions regarding bathing/showering Schedule postoperative incision check in 2 weeks - Follow up plan Forms: [facility] Discharge Summary
[2019-12-21 13:11] VITALS: BP 116/55
== END 2019-12-21 14:50 | disposition home or self-care (01) | DRG 766 ==
LOC: TRG 05:39 → APU 06:13 → TRG 07:33 → APU 07:34 → OB 10:26
PROVIDERS: ADMIT Obstetrics & Gynecology; ATTEND Obstetrics & Gynecology
PROC: 10D00Z1 Extraction of Products of Conception, Low, Open Approach (ICD-10-PCS; principal; 2019-12-19)
DX: O34.211 Maternal care for low transverse scar from previous cesarean delivery (principal); O99.824 Streptococcus B carrier state complicating childbirth; Z37.0 Single live birth; Z82.49 Family history of ischemic heart disease and other diseases of the circulatory system; O99.02 Anemia complicating childbirth; D64.9 Anemia, unspecified; Z3A.38 38 weeks gestation of pregnancy; Z20.828 Contact with and (suspected) exposure to other viral communicable diseases
CPT/HCPCS: 36415; 85014; 85018; 85027; 86592; 86850; 86900; 86901; G0378; J0690; J1885; J2270; J2370; J2405; J2590; J2765; J3490; J7120; J7121; U0003-CS